=== PATIENT | female | born 2005 | race Caucasian/White ===

== ENCOUNTER 2024-03-05 23:44 | Emergency (ER) | payer OTHER ==
[~2024-03-05 23:44] MED LIST: LIDOCAINE PATCH REMOVAL MC SCH
[2024-03-05 23:51] VITALS: BP 108/83; PULSE 90; RESP 18; TEMP 98.6; BMI 30.2
[2024-03-05] MEDS ORDERED: LIDOCAINE 5% TOPICAL PATCH ONE (23:56)
[2024-03-05] MEDS ORDERED: KETOROLAC TROMETHAMINE 30 MG/1 ML VIAL ONE (23:56)
[2024-03-06] MEDS: LIDOCAINE 5% TOPICAL PATCH TP ONE (00:07)
[2024-03-06] MEDS: KETOROLAC TROMETHAMINE 30 MG/1 ML VIAL IM ONE (00:07)
== END 2024-03-06 01:17 | disposition home or self-care (01) ==
LOC: FER 23:44
PROC: 3E0233Z Introduction of Anti-inflammatory into Muscle, Percutaneous Approach (ICD-10-PCS; principal; 2024-03-05)
DX: M54.50 Low back pain, unspecified (principal)
CPT/HCPCS: 96372; 99284-25